=== PATIENT | male | born 1970 | race Caucasian/White ===

== ENCOUNTER 2017-05-30 07:26 | Outpatient (CLI) | payer OTHER ==
--- NOTE | 2017-05-30 20:19 | MRI Report ---
EXAM: MRI LUMBAR SPINE WITHOUT CONTRAST COMPARISON: None. CLINICAL HISTORY: Pain in the right hip. TECHNIQUE: Multiplanar multisequence imaging is performed through the lumbar spine without contrast. FINDINGS: Evaluation of alignment shows no listheses. Conus terminates at the mid L1 level, conus is unremarkable. No pathologic marrow placement is identified. There are Modic type I endplate changes at L5-S1. No retroperitoneal adenopathy or masses. Visualized abdominal aorta is of normal caliber. Disk levels: L1-L2. Moderate disk height loss. No significant canal or foraminal stenosis. L2-L3. Moderate disk height loss. Mild facet arthropathy. No significant canal or foraminal stenosis. L3-L4. Mild disk height loss. Mild facet arthropathy. No significant canal or foraminal stenosis. L4-L5. Mild disk height loss. Mild facet arthropathy. No significant canal or foraminal stenosis. L5-S1. Moderate disk height loss. Mild facet arthropathy. Mild to moderate right and mild left forami nal stenosis. No significant canal stenosis. IMPRESSION: No high grade canal or foraminal stenosis at any level. Modic type I changes at L5-S1 are noted, may be associated with pain. Referring Provider Line: [phone] SITE ID: [id number]
== END 2017-05-30 07:27 | disposition home or self-care (01) ==
LOC: DI 07:26
PROVIDERS: ATTEND Student in an Organized Health Care Education/Training Program
DX: M51.36 Other intervertebral disc degeneration, lumbar region (principal); M47.896 Other spondylosis, lumbar region; M51.37 Other intervertebral disc degeneration, lumbosacral region; M47.897 Other spondylosis, lumbosacral region
CPT/HCPCS: 72148